=== PATIENT | female | born 1945 | race Caucasian/White ===

== ENCOUNTER 2018-03-02 06:14 | Day surgery (SDC) | payer MEDICARE, BC ==
[2018-03-02] VITALS (10 sets, daily range): BP systolic 116–158; BP diastolic 55–103
[~2018-03-02] VITALS: Ht 163.8 cm; Wt 72.8 kg
[2018-03-02] MEDS ORDERED: normal saline 1000ml 1,000 ML IV PRN (06:40)
[2018-03-02] MEDS ORDERED: ASPI81TA52 PO (07:00)
[2018-03-02] MEDS ORDERED: NIFE30TA88 PO (07:00)
[2018-03-02] MEDS ORDERED: CITA40TA22 PO (07:00)
[2018-03-02] MEDS ORDERED: BUPR150T8 PO (07:00)
[2018-03-02] MEDS ORDERED: ATOR10TA87 PO (07:00)
[2018-03-02] MEDS ORDERED: METO50TA17 PO (07:00)
[2018-03-02 07:36] LABS: BASOPHILS # (AUTO) 0.1 X10'3 (0-0.2); BASOPHILS % (AUTO) 0.8 % (0-1); EOSINOPHILS # (AUTO) 0.4 X10'3 (0-0.9); EOSINOPHILS % (AUTO) 5.2 % (0-6); HEMATOCRIT 36.8 % (35.0-45.0); HEMOGLOBIN 12.7 g/dl (12.0-16.0); LYMPHOCYTES # (AUTO) 2.3 X10'3 (1.1-4.8); LYMPHOCYTES % (AUTO) 31.3 % (21-51); MEAN CORPUSCULAR HEMOGLOBIN 31.9 PG (27.0-31.0); MEAN CORPUSCULAR HGB CONC 34.4 % (33.0-36.5); MEAN CORPUSCULAR VOLUME 92.5 FL (78-98); MEAN PLATELET VOLUME 8.6 FL (7.4-10.4); MONOCYTES # (AUTO) 0.7 X10'3 (0-0.9); MONOCYTES % (AUTO) 9.6 % (2-12); NEUTROPHILS # (AUTO) 3.8 X10'3 (1.8-7.7); NEUTROPHILS % (AUTO) 53.1 % (42-75); PLATELET COUNT 200 X10'3 (140-440); RED BLOOD COUNT 3.98 X10'6 (4.20-5.60); RED CELL DISTRIBUTION WIDTH 13.2 % (11.5-14.5); WHITE BLOOD COUNT 7.3 X10'3 (4.5-11.0)
[2018-03-02] MEDS ORDERED: fentaNYL/PF 50MCG/1 ML 2ML syringe IV PRN (08:05)
[2018-03-02] MEDS ORDERED: LIDOcaine 1%/PF (10mg/ml) 5ml vial SQ ONE (08:05)
[2018-03-02] MEDS ORDERED: midazolam 2 mg/2 ml injection IV PRN (08:05)
[2018-03-02] MEDS ORDERED: diphenhydrAMINE 50 mg/ml inj IM ONE (08:05)
[2018-03-02] MEDS ORDERED: iohexol 300 MG/1 ML 50ml polymer ONE (08:21)
[2018-03-02] MEDS ORDERED: LIDOcaine 1%/PF (10mg/ml) 5ml vial ONE ×2 (08:21→09:02)
[2018-03-02] MEDS ORDERED: diphenhydrAMINE 50 mg/ml inj ONE (08:36)
[2018-03-02] MEDS ORDERED: fentaNYL/PF 50MCG/1 ML 2ML syringe ONE ×2 (08:36→08:59)
[2018-03-02] MEDS ORDERED: midazolam 2 mg/2 ml injection ONE ×2 (08:36→08:59)
[2018-03-02] MEDS ORDERED: cefazolin/dext.iso 2gm/50ml 50 ML IV ONE (08:37)
[2018-03-02] MEDS ORDERED: normal saline 1000ml 1,000 ML IV SCH (09:57)
[2018-03-02] MEDS ORDERED: cefazolin/dext.iso 2gm/50ml 100 ML IV SCH (16:00)
[2018-03-02] MEDS ORDERED: lactobacillus rhamnosus 10,000 MMU CELLS/CAPSULE PO SCH (20:00)
== END 2018-03-02 12:50 | disposition home or self-care (01) ==
LOC: SSTAY O 06:14
PROVIDERS: ATTEND Radiology Diagnostic Radiology
DX: S32.030A Wedge compression fracture of third lumbar vertebra, initial encounter for closed fracture (principal); M81.0 Age-related osteoporosis without current pathological fracture; I10 Essential (primary) hypertension; D70.4 Cyclic neutropenia; F32.9 Major depressive disorder, single episode, unspecified; M19.90 Unspecified osteoarthritis, unspecified site; E78.5 Hyperlipidemia, unspecified; J44.9 Chronic obstructive pulmonary disease, unspecified; Z72.89 Other problems related to lifestyle; Z98.42 Cataract extraction status, left eye; Z98.41 Cataract extraction status, right eye; Z87.891 Personal history of nicotine dependence; Z90.710 Acquired absence of both cervix and uterus; Z88.6 Allergy status to analgesic agent; Z88.2 Allergy status to sulfonamides; Z79.82 Long term (current) use of aspirin; Z79.899 Other long term (current) drug therapy; Z86.14 Personal history of Methicillin resistant Staphylococcus aureus infection; Z98.890 Other specified postprocedural states; W19.XXXA Unspecified fall, initial encounter; Y93.89 Activity, other specified; Y92.89 Other specified places as the place of occurrence of the external cause; Y99.8 Other external cause status
CPT/HCPCS: 22514; 36415; 85025; 99152; 99153; J0690; J1200; J2001; J2250; J3010; J7030; Q9967; 88173; 88305; 88342; A4620